=== PATIENT | female | born 1980 | race Caucasian/White ===

== ENCOUNTER 2019-09-28 14:29 | Emergency (ER) | payer MEDICAID ==
[~2019-09-28] VITALS: Ht 170.2 cm; Wt 84.1 kg
[2019-09-28] MEDS ORDERED: HYDROcodone/acetaminophen 5mg/325mg tablet PO ONE (16:05)
[2019-09-28 16:31] LABS: URINE HCG NEGATIVE (NEG)
[2019-09-28 16:32] LABS: CLARITY,URINE CLEAR (Clear); COLOR,URINE YELLOW (Yellow); GLUCOSE, URINE NEGATIVE (Neg); KETONES,URINE NEGATIVE (Neg); LEUKOCYTE ESTERASE ,URINE NEGATIVE (Neg); NITRITES, URINE NEGATIVE (Neg); OCCULT BLOOD,URINE NEGATIVE (Neg); PH,URINE 5.5 (4.8-8.0); PROTEIN,URINE NEGATIVE (Neg); UROBILINOGEN,URINE 0.2 E.U/dL (0.2-1.0)
[2019-09-28 16:37] LABS: UA COLLECTION TYPE CLN CATCH MIDSTREAM
[2019-09-28] MEDS ORDERED: HYDR-3965 PO (17:22)
[2019-09-28 17:31] VITALS: BP 124/86
[2019-09-29] MEDS ORDERED: OXYC-150 PO (20:32)
== END 2019-09-28 17:32 | disposition home or self-care (01) ==
LOC: ER 14:30
DX: S22.31XA Fracture of one rib, right side, initial encounter for closed fracture (principal); F41.9 Anxiety disorder, unspecified; Z88.0 Allergy status to penicillin; Z88.2 Allergy status to sulfonamides; Z88.5 Allergy status to narcotic agent; Z79.899 Other long term (current) drug therapy; W55.12XA Struck by horse, initial encounter; Y93.89 Activity, other specified; Y92.89 Other specified places as the place of occurrence of the external cause; Y99.8 Other external cause status
CPT/HCPCS: 71250; 74176; 81003; 81025; 99285

== ENCOUNTER 2019-09-29 18:26 | Emergency (ER) | payer MEDICAID ==
[~2019-09-29] VITALS: Ht 172.7 cm; Wt 80.0 kg
[~2019-09-29 18:26] MED LIST: HYDR-3965 PO
[2019-09-29 18:41] VITALS: BP 160/106
[2019-09-29] MEDS ORDERED: oxyCODONE/APAP 10/325mg tablet PO ONE (19:40)
[2019-09-29] MEDS ORDERED: orphenadrine citrate 60mg/2ml inj. IM ONE (20:30)
[2019-09-29] MEDS ORDERED: ketorolac tromethamine 15mg/ml inj. IM ONE (20:30)
[2019-09-29] MEDS ORDERED: OXYC-150 PO (20:32)
== END 2019-09-29 20:53 | disposition home or self-care (01) ==
LOC: ER 18:27
DX: S22.41XD Multiple fractures of ribs, right side, subsequent encounter for fracture with routine healing (principal); F41.9 Anxiety disorder, unspecified; Z88.0 Allergy status to penicillin; Z88.2 Allergy status to sulfonamides; Z88.5 Allergy status to narcotic agent; Z79.899 Other long term (current) drug therapy; W55.12XD Struck by horse, subsequent encounter
CPT/HCPCS: 71046; 96372; 99284; J1885; J2360

== ENCOUNTER 2020-05-10 13:27 | Emergency (ER) | payer MEDICAID ==
[~2020-05-10] VITALS: Ht 170.2 cm; Wt 96.0 kg
[~2020-05-10 13:27] MED LIST changes: -HYDR-3965 PO; +OXYC-150 PO
[2020-05-10 14:20] LABS: CLARITY,URINE CLOUDY (Clear); COLOR,URINE YELLOW (Yellow); GLUCOSE, URINE NEGATIVE (Neg); KETONES,URINE NEGATIVE (Neg); LEUKOCYTE ESTERASE ,URINE MODERATE (Neg); NITRITES, URINE POSITIVE (Neg); OCCULT BLOOD,URINE MODERATE (Neg); PROTEIN,URINE 30 mg/dl (Neg); UROBILINOGEN,URINE 0.2 E.U/dL (0.2-1.0)
[2020-05-10 14:21] LABS: URINE HCG NEGATIVE (NEG)
[2020-05-10 14:25] LABS: UA COLLECTION TYPE CLN CATCH MIDSTREAM
[2020-05-10 14:26] LABS: WBC,URINE TNTC /HPF (0-4)
[2020-05-10 14:27] LABS: BACTERIA,URINE 3+ /HPF (Neg)
[2020-05-10 14:28] LABS: RBC,URINE 0-2 /HPF (0-2); SQUAMOUS EPITHELIAL CELL,UR FEW /LPF (FEW)
[2020-05-10 14:35] LABS: BASOPHILS % (AUTO) 0.2 % (0-1); EOSINOPHILS % (AUTO) 0.3 % (0-6); HEMATOCRIT 41.5 % (35.0-45.0); HEMOGLOBIN 13.9 g/dl (12.0-16.0); LYMPHOCYTES # (AUTO) 0.6 X10'3 (1.1-4.8); LYMPHOCYTES % (AUTO) 7.3 % (21-51); MEAN CORPUSCULAR HEMOGLOBIN 30.4 PG (27.0-31.0); MEAN CORPUSCULAR HGB CONC 33.6 g/dL (33.0-36.5); MEAN CORPUSCULAR VOLUME 90.7 FL (78-98); MEAN PLATELET VOLUME 7.8 FL (7.4-10.4); MONOCYTES # (AUTO) 0.8 X10'3 (0-0.9); MONOCYTES % (AUTO) 9.4 % (2-12); NEUTROPHILS # (AUTO) 7.2 X10'3 (1.8-7.7); NEUTROPHILS % (AUTO) 82.8 % (42-75); PLATELET COUNT 225 X10'3 (140-440); RED BLOOD COUNT 4.58 X10'6 (4.20-5.60); RED CELL DISTRIBUTION WIDTH 13.4 % (11.5-14.5); WHITE BLOOD COUNT 8.7 X10'3 (4.5-11.0)
[2020-05-10 14:46] LABS: ALANINE AMINOTRANSFERASE 21 U/L (12-78); ALBUMIN 3.3 G/DL (3.4-5.0); ALBUMIN/GLOBULIN RATIO 0.8 (1.1-1.5); ALKALINE PHOSPHATASE 74 IU/L (46-116); ANION GAP 5 (8-16); ASPARTATE AMINO TRANSFERASE 11 U/L (10-37); BILIRUBIN,TOTAL 0.2 MG/DL (0.1-1.0); BLOOD UREA NITROGEN 12 MG/DL (7-18); BUN/CREATININE RATIO 16.2 (6.6-38.0); CALCIUM 8.7 MG/DL (8.5-10.1); CHLORIDE 103 MMOL/L (99-107); CREATININE 0.74 MG/DL (0.40-0.90); GLUCOSE 87 MG/DL (70-104); LIPASE 307 U/L (73-393); POTASSIUM 3.4 MMOL/L (3.5-5.1); SODIUM 138 MMOL/L (135-145); TOTAL CARBON DIOXIDE 29.6 MMOL/L (24-32); TOTAL PROTEIN 7.3 G/DL (6.4-8.2); eGFR 86 ML/MIN
[2020-05-10] MEDS ORDERED: ketorolac tromethamine 15mg/ml inj. IV ONE (14:55)
[2020-05-10] MEDS ORDERED: CefTRIAXone/D5W-Rocephin 1gm 50 ML IV ONE (14:55)
[2020-05-10] MEDS ORDERED: LEVO500T89 PO (15:29)
[2020-05-10 15:38] VITALS: BP 122/70
== END 2020-05-10 15:40 | disposition home or self-care (01) ==
LOC: ER 13:27
DX: N39.0 Urinary tract infection, site not specified (principal); R10.9 Unspecified abdominal pain; R19.7 Diarrhea, unspecified; R50.9 Fever, unspecified; R30.0 Dysuria; M54.5 Low back pain; R42 Dizziness and giddiness; I10 Essential (primary) hypertension; J45.909 Unspecified asthma, uncomplicated; F41.9 Anxiety disorder, unspecified; F17.200 Nicotine dependence, unspecified, uncomplicated; F12.90 Cannabis use, unspecified, uncomplicated; Z72.89 Other problems related to lifestyle; Z88.0 Allergy status to penicillin; Z88.2 Allergy status to sulfonamides; Z88.5 Allergy status to narcotic agent; Z79.2 Long term (current) use of antibiotics
CPT/HCPCS: 36415; 76775; 80053; 81001; 81025; 83690; 83735; 85025; 87077; 87088; 87186; 87491; 99284

== ENCOUNTER 2021-06-10 22:51 | Emergency (ER) | payer MEDICAID ==
[~2021-06-10] VITALS: Ht 170.2 cm; Wt 90.9 kg
[2021-06-10 23:03] VITALS: BP 185/102
[2021-06-10] MEDS ORDERED: CLIN150C8 PO (23:42)
[2021-06-10] MEDS ORDERED: ondansetron 4mg rapidly disintigrating tab PO ONE (23:45)
[2021-06-10] MEDS ORDERED: clindamycin 150mg capsule PO ONE (23:45)
== END 2021-06-10 23:56 | disposition home or self-care (01) ==
LOC: ER 22:53
DX: L02.512 Cutaneous abscess of left hand (principal); L02.511 Cutaneous abscess of right hand; I10 Essential (primary) hypertension; J45.909 Unspecified asthma, uncomplicated; F41.9 Anxiety disorder, unspecified; F12.10 Cannabis abuse, uncomplicated; Z88.0 Allergy status to penicillin; Z88.2 Allergy status to sulfonamides; Z79.899 Other long term (current) drug therapy
CPT/HCPCS: 99283

== ENCOUNTER 2021-10-21 20:15 | Emergency (ER) | payer MEDICAID ==
[~2021-10-21] VITALS: Ht 172.7 cm; Wt 88.6 kg
[~2021-10-21 20:15] MED LIST changes: +CLIN150C8 PO
[2021-10-21 20:22] VITALS: BP 159/97
[2021-10-21] MEDS ORDERED: clindamycin 150mg capsule PO ONE (22:20)
[2021-10-21] MEDS ORDERED: ciprofloxacin 250mg tablet PO ONE ×2 (22:20→23:00)
[2021-10-21] MEDS ORDERED: TETanus/Pertussis (Acell)/Diphther VAC/PF (Tdap-Adult) 0.5ml syringe IMVAC ONE ×2 (22:20→23:00)
[2021-10-21] MEDS ORDERED: CIPR-259 PO (22:24)
--- NOTE | 2021-10-21 22:55 | NUR ---
PT LEFT ER STATING SHE NEEDED TO GO OUTSIDE. UNDER THE ASSUMPTION PT LEFT, MEDICATIONS PULLED CIPRO TABLETS AND TDAP VACCINATION WERE DISCARDED WITNESSED BY AIDAN BARR. PT THEN RETURNED BACK TO THE ER. PHARMACY CONTACTED.
--- NOTE | 2021-10-21 23:03 | NUR ---
PHARMACY REINSTATED MEDICATIONS
== END 2021-10-21 23:04 | disposition home or self-care (01) ==
LOC: ER 20:19
DX: S91.332A Puncture wound without foreign body, left foot, initial encounter (principal); F17.200 Nicotine dependence, unspecified, uncomplicated; J45.909 Unspecified asthma, uncomplicated; F41.9 Anxiety disorder, unspecified; I10 Essential (primary) hypertension; Z88.0 Allergy status to penicillin; Z88.2 Allergy status to sulfonamides; Z79.899 Other long term (current) drug therapy; Z88.5 Allergy status to narcotic agent; Z79.2 Long term (current) use of antibiotics; F12.10 Cannabis abuse, uncomplicated; W22.8XXA Striking against or struck by other objects, initial encounter; Y93.89 Activity, other specified; Y92.89 Other specified places as the place of occurrence of the external cause; Y99.8 Other external cause status
CPT/HCPCS: 73630; 90471; 90715; 99283

== ENCOUNTER 2023-05-05 08:35 | Emergency (ER) | payer MEDICAID ==
[~2023-05-05] VITALS: Ht 170.2 cm; Wt 90.9 kg
[~2023-05-05 08:35] MED LIST changes: +CLIN-214 PO; -CLIN150C8 PO
[2023-05-05 08:42] VITALS: BP 185/111; PULSE 84; TEMP 98.7; O2SAT 99
[2023-05-05] MEDS ORDERED: PROM118S5 PO (10:40)
[2023-05-05] MEDS ORDERED: ALBU8HFA INH (10:40)
[2023-05-05] MEDS ORDERED: BENZ-38 PO (10:40)
[2023-05-05 10:59] VITALS: RESP 16
== END 2023-05-05 10:59 | disposition home or self-care (01) ==
LOC: ER 08:35
DX: J06.9 Acute upper respiratory infection, unspecified (principal); R05.9 Cough, unspecified; I10 Essential (primary) hypertension; J45.909 Unspecified asthma, uncomplicated; F12.90 Cannabis use, unspecified, uncomplicated; Z88.0 Allergy status to penicillin; Z88.2 Allergy status to sulfonamides; Z88.5 Allergy status to narcotic agent; Z79.2 Long term (current) use of antibiotics
CPT/HCPCS: 71045; 99283

== ENCOUNTER 2024-02-07 13:04 | Emergency (ER) | payer MEDICAID ==
[~2024-02-07] VITALS: Ht 170.2 cm; Wt 90.9 kg
[2024-02-07 13:11] VITALS: BP 166/100; PULSE 86; RESP 18; TEMP 97.6; O2SAT 99
== END 2024-02-07 15:24 | disposition home or self-care (01) ==
LOC: ER 13:05
DX: S09.8XXA Other specified injuries of head, initial encounter (principal); R07.89 Other chest pain; I10 Essential (primary) hypertension; J45.909 Unspecified asthma, uncomplicated; F41.9 Anxiety disorder, unspecified; F12.90 Cannabis use, unspecified, uncomplicated; Z72.89 Other problems related to lifestyle; Z88.0 Allergy status to penicillin; Z88.2 Allergy status to sulfonamides; Z88.5 Allergy status to narcotic agent; V49.9XXA Car occupant (driver) (passenger) injured in unspecified traffic accident, initial encounter; Y93.89 Activity, other specified; Y92.89 Other specified places as the place of occurrence of the external cause; Y99.8 Other external cause status
CPT/HCPCS: 99282

== ENCOUNTER 2024-04-19 14:22 | Emergency (ER) | payer MEDICAID ==
[~2024-04-19] VITALS: Ht 170.2 cm; Wt 87.5 kg
[2024-04-19 14:30] VITALS: BP 135/88; PULSE 92; RESP 16; TEMP 98.7; O2SAT 98
== END 2024-04-19 17:27 | disposition left against medical advice (07) ==
LOC: ER 14:23
DX: J00 Acute nasopharyngitis [common cold] (principal); R05.9 Cough, unspecified; R68.89 Other general symptoms and signs; Z88.5 Allergy status to narcotic agent; Z88.0 Allergy status to penicillin; Z88.2 Allergy status to sulfonamides; Z53.21 Procedure and treatment not carried out due to patient leaving prior to being seen by health care provider
CPT/HCPCS: 71045

== ENCOUNTER 2024-06-23 17:12 | Emergency (ER) | payer MEDICAID ==
[~2024-06-23] VITALS: Ht 340.4 cm; Wt 91.4 kg
[2024-06-23 17:50] LABS: BASOPHILS % (AUTO) 0.5 % (0-1); EOSINOPHILS # (AUTO) 0.1 X10'3 (0-0.9); EOSINOPHILS % (AUTO) 1.9 % (0-6); HEMATOCRIT 42.8 % (35.0-45.0); HEMOGLOBIN 14.3 g/dl (12.0-16.0); LYMPHOCYTES # (AUTO) 1.5 X10'3 (1.1-4.8); LYMPHOCYTES % (AUTO) 19.1 % (21-51); MEAN CORPUSCULAR HEMOGLOBIN 29.8 PG (27.0-31.0); MEAN CORPUSCULAR HGB CONC 33.5 g/dL (33.0-36.5); MEAN CORPUSCULAR VOLUME 89.1 FL (78-98); MEAN PLATELET VOLUME 7.7 FL (7.4-10.4); MONOCYTES # (AUTO) 0.4 X10'3 (0-0.9); MONOCYTES % (AUTO) 5.3 % (2-12); NEUTROPHILS # (AUTO) 5.7 X10'3 (1.8-7.7); NEUTROPHILS % (AUTO) 73.2 % (42-75); PLATELET COUNT 281 X10'3 (140-440); RED BLOOD COUNT 4.81 X10'6 (4.20-5.60); WHITE BLOOD COUNT 7.8 X10'3 (4.5-11.0)
[2024-06-23 18:10] LABS: ALANINE AMINOTRANSFERASE 30 U/L (12-78); ALBUMIN 4.1 G/DL (3.4-5.0); ALBUMIN/GLOBULIN RATIO 1.4 (1.1-1.5); ALKALINE PHOSPHATASE 93 IU/L (46-116); ANION GAP 6 (8-16); ASPARTATE AMINO TRANSFERASE 17 U/L (10-37); BILIRUBIN,TOTAL 0.3 MG/DL (0.1-1.0); BLOOD UREA NITROGEN 18 MG/DL (7-18); BUN/CREATININE RATIO 23.1 (10.0-20.0); CALCIUM 8.7 MG/DL (8.5-10.1); CHLORIDE 105 MMOL/L (99-107); CREATININE 0.78 MG/DL (0.40-0.90); GLUCOSE 121 MG/DL (70-104); LIPASE 40 U/L (16-77); POTASSIUM 3.7 MMOL/L (3.5-5.1); SODIUM 140 MMOL/L (135-145); TOTAL CARBON DIOXIDE 28.7 MMOL/L (24-32); TOTAL PROTEIN 7.1 G/DL (6.4-8.2); eCRCL 131 ML/MIN; eGFR 80 ML/MIN
--- NOTE | 2024-06-23 22:52 | Physician Documentation ---
History of Present Illness Chief Complaint: Abdominal Pain Stated Complaint: PAIN LOWER RIGHT BACK Time Seen by MD: 22:49 OK to notify your PCP?: Yes Primary Medical Doctor: NO PMD Source: patient, RN/, RN notes reviewed, old records Mode of Arrival: POV Exam Limitations: no limitations HPI 43 year old female presents to the emergency department for complaints of back pain that has been worsening for 6 days. She states that she has been having back pain since January and taking Flexorol and Neproxin in addition to seeing a chiropractor. She was helping a friend move when she felt a new pain in her back and it has been worsening since then. She states that the pain is aided with hot water and is intermittent but generally worsening. She states that it is in her back but radiates to her left side and down her left leg. She states that movement makes the pain worsen. Medication Reconciliation Allergies: Coded Allergies: Penicillins (Verified Allergy, Unknown, HIVES, 06/23/24) Sulfa (Sulfonamide Antibiotics) (Verified Allergy, Unknown, HIVES, 06/23/24) codeine (Verified Allergy, Unknown, 06/23/24) Scheduled Clindamycin HCl (Clindamycin HCl CAPSULE), 1 CAP PO TID Naproxen (Naproxen), 1 TAB PO Q12H Scheduled PRN Hydrocodone Bit/Acetaminophen 5/325 MG ([place] 5/325 MG), 1 TAB PO Q12H PRN PRN for pain Oxycodone HCl/Acetaminophen (Percocet 10-325 mg Tablet), 1 TAB PO QID PRN PRN for pain Past Medical History Past Medical History: Hypertension, Asthma, Anxiety Past Surgical History: noncontributory Alcohol Use: Occasionally Drug Use: marijuana Lives In: Home Review of Systems All Other Systems at this time: Reviewed and Negative ROS As stated above in the HPI, otherwise all systems are reviewed and negative. Physical Exam Vital Signs: RN Vital Signs have been reviewed: Yes, Temperature: 97.5, Source: Temporal, Heart Rate: 82, Respiratory Rate: 18, BP: 169/91, Pulse Oximetry: 98, Weight: 91.400 Pulse Oximetry Reflects: adequate oxygenation Physical Exam General: The patient is well developed, well nourished, nontoxic appearing and is in no acute distress. Skin: [place], warm and dry with no rashes. HEENT: Head was normocephalic and atraumatic. Eyes - pupils equal, round, reactive to light and accommodation. Extraocular movements were intact. Conjunctivae were nonicteric. Ears - bilateral tympanic membranes were normal. The mouth and oropharynx were clear with moist mucous membranes. There were no pharyngeal exudates or erythema. Neck: Supple and nontender. There was no jugular venous distention, lymphade nopathy, thyromegaly or masses. Chest: Clear to auscultation bilaterally without wheezes, rales or rhonchi. No accessory muscle use. No dullness to percussion. Heart: Rate regular and rhythmic. S1, S2. No murmurs. Palpation of the chest wall was normal. No rubs or thrills. Abdomen: Right lower quadrant pain. L2 Paraspinal tenderness. Positive bowel sounds. No guarding or rebound. No hepatosplenomegaly or palpable masses. Extremities: No cyanosis, clubbing or edema. The patient moves all extremi ties. Pulses were equal and symmetric. Neurologic: Cranial nerves II-XII were intact. Sensation was intact to light touch throughout. Motor strength was 5/5 in all four extremities. Deep tendon reflexes were intact in both upper and lower extremities. Psychologic: The patient was oriented to person, place and time. The patient demonstrated appropriate judgement and insight. Progress Results/Orders Reviewed/noted all lab results: Yes Results/Orders Vital Signs 06/23/24 17:17 Temp 97.5 Pulse 82 Resp 18 B/P (MAP) 169/91 Pulse Ox 98 Laboratory Tests Test 06/23/24 17:36 White Blood Count 7.8 Red Blood Count 4.81 Hemoglobin 14.3 Hematocrit 42.8 Mean Corpuscular Volume 89.1 Mean Corpuscular Hemoglobin 29.8 Mean Corpuscular Hemoglobin Concent 33.5 Red Cell Distribution Width 14.0 Platelet Count 281 Mean Platelet Volume 7.7 Neutrophils (%) (Auto) 73.2 Lymphocytes (%) (Auto) 19.1 L Monocytes (%) (Auto) 5.3 Eosinophils (%) (Auto) 1.9 Basophils (%) (Auto) 0.5 Neutrophils # (Auto) 5.7 Lymphocytes # (Auto) 1.5 Monocytes # (Auto) 0.4 Eosinophils # (Auto) 0.1 Basophils # (Auto) 0.0 CBC Comment Sodium Level 140 Potassium Level 3.7 Chloride Level 105 Carbon Dioxide Level 28.7 Anion Gap 6 L Blood Urea Nitrogen 18 Creatinine 0.78 Estimated GFR/1.73 m2 80 BUN/Creatinine Ratio 23.1 H Glucose Level 121 H Calcium Level 8.7 Total Bilirubin 0.3 Aspartate Amino Transf (AST/SGOT) 17 Alanine Aminotransferase (ALT/SGPT) 30 Alkaline Phosphatase 93 Total Protein 7.1 Albumin 4.1 Globulin 3.0 Albumin/Globulin Ratio 1.4 Lipase 40 Chemistry Comments Re-Evaluation Re-Evaluation : Re-Evaluation: Improved Progress Patient was seen and examined. Patient was given reassurance. Patient was having some vague nonspecific pain. Patient received Toradol later some fluids. He was her pain was still pretty significant and unexplainable CT scan was obtained which later showed a large ovarian cyst. Patient will need an FNA and drainage. She was given pain medications anti-inflammatories reassurance and discharged home to outpatient gynecology. We discussed hemorrhagic versus regular simple cysts and possible complications including torsion and also possible cancer if it is a complex cyst which ultrasound did not show. Nevertheless patient was given an formation prescriptions were written and patient was then discharged home. Laboratory work showed a normal CBC infectious etiology is unlikely. Chemistries within normal limits except glucose is slightly elevated at 121. Urinalysis negative as well as . Continuous site monitor interpretation shows normal sinus rhythm heart rate 80s, no ectopy, normal, my interpretation. Pulse oximetry monitor interpretation shows normal oxygenation 98% room air, normal, my interpretation EKG/XRAY/CT/US/VASC/MRI CT #1: Impression Clinical History RLQ / FLANK PAIN, ABNORMAL AREA SEEN ON NON CONTRAST STUDY Comparison None Technique: All CT scans at this medical facility are performed using dose modulation techniques as appropriate to a performed exam including the following: Automated exposure control was utilized; adjustment of the mA and/or kV according to patient size; and use of iterative reconstruction technique. All CT studies are reported to the Dose Index Registry of the [employer]. Contrast: omni 300 100ml Radiation Dose: CTDI (mGy): 29.64; DLP (mGy-cm): 1497.76 LIZ GIL, [id number] Comparison: 09/28/2019 FINDINGS: Lower chest: Unremarkable Liver: Unremarkable Gallbladder: Unremarkable Pancreas: Unremarkable Spleen: Unremarkable Adrenals:Unremarkable Kidneys: Unremarkable Stomach:Unremarkable Bowel:Evaluation of the bowel is limited and incomplete due to lack of oral contrast. The small and large bowel are grossly unremarkable. Normal appendix. Urinary bladder:Unremarkable Reproductive organs: 2.7 cm right ovarian cyst. Peritoneum, retroperitoneum, lymphadenopathy:Unremarkable Vascular structures:Unremarkable Abdominal wall:Unremarkable Musculoskeletal:No acute osseous abnormality. L5/S1 degenerative disc disease with reduction of disc height and narrowing of the caudal aspect of the neuroforamina. IMPRESSION: No calcified nephroureterolithiasis or hydroureteronephrosis. 2.7 cm right ovarian cyst No evidence of acute intra-abdominal abnormality This report was electronically signed by Agustina Villagran MD on 06/24/2024 1:45:01 AM. Electronically Signed by:AGUSTINA VILLAGRAN MD Date & Time: 06/24/[address] #2: Impression Clinical History ABD PAIN, RT SIDED ABD/FLANK PAIN Comparison CT CHEST/ABD/PEL on 09/28/2019, 747 images. Technique: All CT scans at this medical facility are performed using dose modulation techniques as appropriate to a performed exam including the following: Automated exposure control was utilized; adjustment of the mA and/or kV according to patient size; and use of iterative reconstruction technique. All CT studies are reported to the Dose Index Registry of the [employer]. Without Contrast Radiation Dose: CTDI (mGy): 29.22; DLP (mGy-cm): 1585.99 LIZ GIL, [id number] Comparison: 09/28/2019 FINDINGS: Lower chest: Unremarkable Liver: Unremarkable Gallbladder: Unremarkable Pancreas: Unremarkable Spleen: Unremarkable Adrenals:Unremarkable Kidneys: Unremarkable Stomach:Unremarkable Bowel:Evaluation of the bowel is limited and incomplete due to lack of oral contrast. The small and large bowel are grossly unremarkable. Normal appendix. Urinary bladder:Unremarkable Reproductive organs: 2.7 cm right ovarian cyst. Peritoneum, retroperitoneum, lymphadenopathy:Unremarkable Vascular structures:Unremarkable Abdominal wall:Unremarkable Musculoskeletal:No acute osseous abnormality. L5/S1 degenerative disc disease with reduction of disc height and narrowing of the caudal aspect of the neuroforamina. IMPRESSION: No calcified nephroureterolithiasis or hydroureteronephrosis. 2.7 cm right ovarian cyst No evidence of acute intra-abdominal abnormality This report was electronically signed by Agustina Villagran MD on 06/24/2024 1:40:45 AM. Electronically Signed by:AGUSTINA VILLAGRAN MD Date & Time: 06/24/24 0144 Ultrasound : Impression Clinical History ABD PAIN Comparison ct abd pel on 06/23/2024, 377 images. Technique: Standard grayscale images were acquired in multiple planes with additional Doppler interrogation when appropriate. Without Contrast LIZ GIL, [id number] Findings: The uterus is normal in appearance. Endometrium is unremarkable. Visualized portion of the cervix is normal in appearance. Normal right ovary. Flow is present. right ovarian cyst 2.7 x 2.8 x 3.1 cm. Normal left ovary. Flow is present. No evidence of free fluid in the pelvis. Impression: 1. Normal appearance of the uterus. 2. right ovarian cyst 2.7 x 2.8 x 3.1 cm. 3. No evidence of torsion at this time. This report was electronically signed by Felicia Seay MD on 06/24/2024 3:33:30 AM. Electronically Signed by:FELICIA SEAY MD Date & Time: 06/24/24 0336 Medical Decision Making Additional info obtained from: old records Differential Dx:Considerations: Include: Appendicitis, Bowel obstruction, Cholangitis, Cholelithasis, Constipation, Diverticular disease, Esophageal rupture, Esophagitis, Gastritis/PUD, Gastroenteritis, GI hemorrhage, Hernia, Hepatitis, Inflammatory BD, Ischemic bowel, Ovarian cyst/torsion, Pancreatitis, PID, Trauma, intraabdominal, Urinary obstruction, Urinary tract infection, Urolithiasis, Other Departure Time of Disposition: 02:30 Disposition: 01 HOME / SELF CARE / HOMELESS Impression: Primary Impression: Ovarian cyst Qualified Codes: N83.201 - Unspecified ovarian cyst, right side Condition: Stable Discharge Instructions: Ovarian Cyst, [id number] Additional Instructions: Patient is instructed to follow up with [facility] clinic or [facility] for needle aspiration of ovary. You should call ahead to see if they are able to perform the operation. Return to the ED for excruciating pain, and take antiinflammatories for pain relief. Referrals: NO PRIMARY CARE PROVIDER (PCP) Prescriptions Hydrocodone Bit/Acetaminophen 5/325 MG ([place] 5/325 MG) 5 Mg/325 Mg Tablet 1 TAB PO Q12H PRN PRN for pain for 5 Days, #10 TAB Prov: GIO HERNANDEZ MD 06/24/24 Naproxen (Naproxen) 500 Mg Tablet 1 TAB PO Q12H, #20 TAB Prov: GIO HERNANDEZ MD 06/24/24 Education Educated: Patient Educated regarding: diagnosis, treatment, prognosis, need for follow up Signature Scribe Signature: Scribed for Gio Hernandez MD by Adriana Mendoza . 06/23/24 23:06 Attestation: The note accurately reflects work and decisions made by me.Gio Hernandez MD 06/26/24 09:56 GIO HERNANDEZ MD Jun 23, 2024 22:52 ADRIANA TINOCO Jun 23, 2024 23:06
[2024-06-23 23:25] LABS: BILIRUBIN,URINE NEGATIVE (Neg); CLARITY,URINE CLEAR (Clear); COLOR,URINE YELLOW (Yellow); GLUCOSE, URINE NEGATIVE (Neg); KETONES,URINE NEGATIVE (Neg); LEUKOCYTE ESTERASE ,URINE NEGATIVE (Neg); NITRITES, URINE NEGATIVE (Neg); OCCULT BLOOD,URINE NEGATIVE (Neg); PROTEIN,URINE NEGATIVE (Neg); UROBILINOGEN,URINE 0.2 E.U/dL (0.2-1.0)
[2024-06-23 23:27] LABS: UA COLLECTION TYPE CLN CATCH MIDSTREAM; URINE HCG NEGATIVE (NEG)
[2024-06-23] MEDS ORDERED: iohexol 300mg/ml 100ml inj. ONE (23:50)
[2024-06-23] MEDS: ketorolac trometh 15mg/ml vial 15 MG/ML ML IV ONE (23:54)
[2024-06-23] MEDS: normal saline 1000ML IV soln IVB ONE (23:55)
[2024-06-24 01:41] VITALS: TEMP 97.5
--- NOTE | 2024-06-24 01:44 | RADIOLOGY REPORT ---
Clinical History ABD PAIN, RT SIDED ABD/FLANK PAIN Comparison CT CHEST/ABD/PEL on 09/28/2019, 747 images. Technique: All CT scans at this medical facility are performed using dose modulation techniques as appropriate t o a performed exam including the following: Automated exposure control was utilized; adjustment of th e mA and/or kV according to patient size; and use of iterative reconstruction technique. All CT studies are reported to the Dose Index Registry of the [employer]. Without Contrast Radiation Dose: CTDI (mGy): 29.22; DLP (mGy-cm): 1585.99 LIZ GIL, [id number] Comparison: 09/28/2019 FINDINGS: Lower chest: Unremarkable Liver: Unremarkable Gallbladder: Unremarkable Pancreas: Unremarkable Spleen: Unremarkable Adrenals:Unremarkable Kidneys: Unremarkable Stomach:Unremarkable Bowel:Evaluation of the bowel is limited and incomplete due to lack of oral contrast. The small and large bowel are grossly unremarkable. Normal appendix. Urinary bladder:Unremarkable Reproductive organs: 2.7 cm right ovarian cyst. Peritoneum, retroperitoneum, lymphadenopathy:Unremarkable Vascular structures:Unremarkable Abdominal wall:Unremarkable Musculoskeletal:No acute osseous abnormality. L5/S1 degenerative disc disease with reduction of disc height and narrowing of the caudal aspect of the neuroforamina. IMPRESSION: No calcified nephroureterolithiasis or hydroureteronephrosis. 2.7 cm right ovarian cyst No evidence of acute intra-abdominal abnormality This report was electronically signed by Agustina Sandoval MD on 06/24/2024 1:40:45 AM.
--- NOTE | 2024-06-24 01:48 | RADIOLOGY REPORT ---
Clinical History RLQ / FLANK PAIN, ABNORMAL AREA SEEN ON NON CONTRAST STUDY Comparison None Technique: All CT scans at this medical facility are performed using dose modulation techniques as appropriate t o a performed exam including the following: Automated exposure control was utilized; adjustment of th e mA and/or kV according to patient size; and use of iterative reconstruction technique. All CT studies are reported to the Dose Index Registry of the [employer]. Contrast: omni 300 100ml Radiation Dose: CTDI (mGy): 29.64; DLP (mGy-cm): 1497.76 LIZ GIL, [id number] Comparison: 09/28/2019 FINDINGS: Lower chest: Unremarkable Liver: Unremarkable Gallbladder: Unremarkable Pancreas: Unremarkable Spleen: Unremarkable Adrenals:Unremarkable Kidneys: Unremarkable Stomach:Unremarkable Bowel:Evaluation of the bowel is limited and incomplete due to lack of oral contrast. The small and large bowel are grossly unremarkable. Normal appendix. Urinary bladder:Unremarkable Reproductive organs: 2.7 cm right ovarian cyst. Peritoneum, retroperitoneum, lymphadenopathy:Unremarkable Vascular structures:Unremarkable Abdominal wall:Unremarkable Musculoskeletal:No acute osseous abnormality. L5/S1 degenerative disc disease with reduction of disc height and narrowing of the caudal aspect of the neuroforamina. IMPRESSION: No calcified nephroureterolithiasis or hydroureteronephrosis. 2.7 cm right ovarian cyst No evidence of acute intra-abdominal abnormality This report was electronically signed by Agustina Sandoval MD on 06/24/2024 1:45:01 AM.
[2024-06-24] MEDS ORDERED: NAPR-56 PO (02:43)
[2024-06-24] MEDS ORDERED: HYDR-3965 PO (02:43)
[2024-06-24] MEDS: HYDROcodone/acetaminophen 10/325mg tab PO ONE (03:25)
[2024-06-24] MEDS: naproxen 500mg tablet PO ONE (03:25)
[2024-06-24 03:31] VITALS: BP 171/102; PULSE 77; RESP 18; O2SAT 99
--- NOTE | 2024-06-24 03:36 | RADIOLOGY REPORT ---
Clinical History ABD PAIN Comparison ct abd pel on 06/23/2024, 377 images. Technique: Standard grayscale images were acquired in multiple planes with additional Doppler interro gation when appropriate. Without Contrast LIZ GIL, [id number] Findings: The uterus is normal in appearance. Endometrium is unremarkable. Visualized portion of the cervix i s normal in appearance. Normal right ovary. Flow is present. right ovarian cyst 2.7 x 2.8 x 3.1 cm. Normal left ovary. Flow is present. No evidence of free fluid in the pelvis. Impression: 1. Normal appearance of the uterus. 2. right ovarian cyst 2.7 x 2.8 x 3.1 cm. 3. No evidence of torsion at this time. This report was electronically signed by Felicia Herrera MD on 06/24/2024 3:33:30 AM.
== END 2024-06-24 03:33 | disposition home or self-care (01) ==
LOC: ER 17:13
DX: N83.201 Unspecified ovarian cyst, right side (principal); I10 Essential (primary) hypertension; J45.909 Unspecified asthma, uncomplicated; F41.9 Anxiety disorder, unspecified; F12.90 Cannabis use, unspecified, uncomplicated; Z88.0 Allergy status to penicillin; Z88.2 Allergy status to sulfonamides; Z88.5 Allergy status to narcotic agent; Z79.899 Other long term (current) drug therapy; Z72.89 Other problems related to lifestyle
CPT/HCPCS: 36415; 74176; 74177; 76856; 80053; 81003; 81025; 83690; 85025; 93976; 96361; 96374; 99285; J1885; J7030; Q9967